=== PATIENT | male | born 1965 | race Caucasian/White ===

== ENCOUNTER → 2020-03-10 | Outpatient (REF) | payer BC, OTHER, SELFPAY | LOC: M LAB REF 09:09 | PROVIDERS: ATTEND Physician Assistant Medical | DX: Z11.59 Encounter for screening for other viral diseases (principal) ==

== ENCOUNTER → 2020-03-20 | Outpatient (CLI) | payer SELFPAY | LOC: M LABSMTC 09:16 | PROVIDERS: ATTEND Pediatrics | DX: Z20.828 Contact with and (suspected) exposure to other viral communicable diseases (principal) ==

== ENCOUNTER → 2022-01-23 | Outpatient (CLI) | payer BC ==
[~2022-01-23] MED LIST: OMEP40CA5 PO; PARO30TA4 PO
== END ==
LOC: M LABSMTC 09:08
PROVIDERS: ATTEND Anesthesiology
DX: Z01.812 Encounter for preprocedural laboratory examination (principal); Z20.822 Contact with and (suspected) exposure to COVID-19

== ENCOUNTER 2022-01-25 11:31 | Day surgery (SDC) | payer BC ==
[~2022-01-25] VITALS: Ht 182.9 cm; Wt 83.8 kg
[~2022-01-25 11:31] MED LIST changes: +NS 1,000 ML IV ONE
[2022-01-25] MEDS ORDERED: propofoL 200 MG/20 ML VIAL As Ordered ONE (11:38)
[2022-01-25] MEDS ORDERED: LIDOCAINE 2% 100MG/5ML SDV (FOR ANES.) As Ordered ONE (11:38)
[2022-01-25] MEDS ORDERED: fentaNYL 100 MCG/2 ML INJECTION As Ordered ONE (13:10)
[2022-01-25 14:00] VITALS: BP 113/80
== END 2022-01-25 14:08 | disposition home or self-care (01) ==
LOC: M OPP 11:31
PROVIDERS: ATTEND Internal Medicine Gastroenterology
DX: Z12.11 Encounter for screening for malignant neoplasm of colon (principal); K57.30 Diverticulosis of large intestine without perforation or abscess without bleeding; K64.0 First degree hemorrhoids; K22.89 Other specified disease of esophagus; K44.9 Diaphragmatic hernia without obstruction or gangrene; K31.89 Other diseases of stomach and duodenum; Z79.899 Other long term (current) drug therapy; Z87.891 Personal history of nicotine dependence
CPT/HCPCS: 43239; 45378; 88305; J3010

== ENCOUNTER 2023-09-26 08:35 | Emergency (ER) | payer OTHER ==
[~2023-09-26] VITALS: Ht 182.9 cm; Wt 90.9 kg
[~2023-09-26 08:35] MED LIST changes: -NS 1,000 ML IV ONE
[2023-09-26] MEDS ORDERED: IBUP-1114 PO (08:43)
[2023-09-26] MEDS: KETOROLAC 60MG 2ML VIAL IM ONE (09:07)
[2023-09-26] MEDS: NORCO, ANEXSIA 5/325MG TABLET (HYDROcodone/ACETAMINOPHEN) PO ONE (09:09)
[2023-09-26 10:31] VITALS: BP 134/81; TEMP 98.9; O2SAT 96
== END 2023-09-26 10:37 | disposition home or self-care (01) ==
LOC: M ED 08:35
DX: S83.411A Sprain of medial collateral ligament of right knee, initial encounter (principal); W17.89XA Other fall from one level to another, initial encounter; Y92.9 Unspecified place or not applicable; Y93.89 Activity, other specified; Y99.0 Civilian activity done for income or pay; K21.9 Gastro-esophageal reflux disease without esophagitis
CPT/HCPCS: 73564; 96372; 99283; J1885

== ENCOUNTER → 2023-11-05 | Outpatient (CLI) | payer OTHER ==
[~2023-11-05] MED LIST changes: +IBUP-1114 PO
== END ==
LOC: M PLAIMG 09:24
PROVIDERS: ATTEND Physician Assistant
DX: M25.561 Pain in right knee (principal); M25.461 Effusion, right knee

== ENCOUNTER → 2024-01-03 | Outpatient (CLI) | payer OTHER | LOC: M RAD 14:52 | PROVIDERS: ATTEND Physician Assistant | DX: M25.561 Pain in right knee (principal) ==